=== PATIENT | male | born 1945 | race Caucasian/White ===

== ENCOUNTER 2016-10-13 05:58 | Emergency (ER) | payer MEDICARE ==
[~2016-10-13 05:58] MED LIST: AMIODARONE200 MG PO; ASPIRIN 32325 MG/TAB PO; COREG25 MG PO; ENALAPRIL10 MG PO; IPRATROPIUM BROM3 M1 IH; K-DUR 1010 MEQ PO; KETOROLAC TROME10 MG PO; LASIX40 MG PO; MULTIPLE VITAMI1 TAB PO; SLOW-MAG535 MG PO; VITAMIN D31000 IU PO
[2016-10-13] MEDS ORDERED: PRILOSEC 20MG20 MG PO (06:09)
[2016-10-13] MEDS ORDERED: NORCO 325 MG-51 TA1 PO (06:09)
[2016-10-13] MEDS ORDERED: ZOFRAN4 M2 PO (08:11)
[2016-10-13] MEDS ORDERED: FLEXERIL 1010 MG/TAB PO (08:11)
== END 2016-10-13 08:42 | disposition home or self-care (01) ==
LOC: ED 05:58
DX: M48.06 Spinal stenosis, lumbar region (principal); M54.41 Lumbago with sciatica, right side; M54.10 Radiculopathy, site unspecified; R11.0 Nausea
CPT/HCPCS: J0595

== ENCOUNTER → 2016-11-07 | Outpatient (CLI) | payer MEDICARE ==
[~2016-11-07] MED LIST changes: +FLEXERIL 1010 MG/TAB PO; +NORCO 325 MG-51 TA1 PO; +PRILOSEC 20MG20 MG PO; +ZOFRAN4 M2 PO
== END ==
LOC: RAD 12:03
DX: M25.551 Pain in right hip (principal)

== ENCOUNTER → 2017-03-10 | Outpatient (CLI) | payer MEDICARE ==
[2016-10-13 08:40] VITALS: BP 111/65
== END ==
LOC: LAB 12:07
DX: I43 Cardiomyopathy in diseases classified elsewhere (principal); I25.10 Atherosclerotic heart disease of native coronary artery without angina pectoris; E88.81 Metabolic syndrome and other insulin resistance

== ENCOUNTER → 2017-04-02 | Outpatient (CLI) | payer MEDICARE ==
[2016-10-13 08:40] VITALS: BP 111/65
== END ==
LOC: LAB 11:02
DX: I43 Cardiomyopathy in diseases classified elsewhere (principal); I25.10 Atherosclerotic heart disease of native coronary artery without angina pectoris

== ENCOUNTER → 2017-05-04 | Outpatient (CLI) | payer MEDICARE ==
[2016-10-13 08:40] VITALS: BP 111/65
== END ==
LOC: CARDREHAB 14:06 → PT 14:06
DX: I25.10 Atherosclerotic heart disease of native coronary artery without angina pectoris (principal)
CPT/HCPCS: G0399

== ENCOUNTER → 2017-05-05 | Outpatient (CLI) | payer MEDICARE ==
[2016-10-13 08:40] VITALS: BP 111/65
== END ==
LOC: LAB 05-04 13:49
DX: I25.10 Atherosclerotic heart disease of native coronary artery without angina pectoris (principal)

== ENCOUNTER → 2017-08-31 | Outpatient (CLI) | payer MEDICARE ==
[2016-10-13 08:40] VITALS: BP 111/65
[2017-08-31 12:02] LABS: EOS # 0.1 (0.04-0.40); EOS % 1.5 % (0.0-4.0); HEMATOCRIT 46.4 % (42.0-52.0); HEMOGLOBIN 15.1 g/dL (13.5-18.0); LYMPH# 1.2 (1.50-4.00); MEAN CELL VOLUME 100 fl (78-100); MEAN CORPUSCULAR HEMOGLOBIN 33 pg (27-31); MEAN CORPUSCULAR HGB CONC 33 g/dL (33-37); MEAN PLATELET VOLUME 10.2 fl (7.4-10.4); MONO # 0.8 (0.20-0.80); NEU # 6.3 (1.40-6.50); PLATELET COUNT 242 K/mm3 (130-400); RED BLOOD COUNT 4.65 M/mm3 (4.20-5.60); WHITE BLOOD COUNT 8.5 K/mm3 (4.8-10.8)
[2017-08-31 12:13] LABS: ALBUMIN 3.3 g/dL (3.5-5.0); BUN/CREATININE RATIO 19.7 (6.0-26.0); POTASSIUM 3.9 mmol/L (3.6-5.0); TOTAL BILIRUBIN 0.6 mg/dL (0.2-1.3); TOTAL PROTEIN 6.3 g/dL (6.3-8.2)
[2017-08-31 13:10] LABS: ERYTHROCYTE SEDIMENTATION RATE 25 mm/hr (0-20)
[2017-09-01 00:39] LABS: TESTOSTERONE 370 ng/dL (221-716)
== END ==
LOC: LAB 11:40
PROVIDERS: Internal Medicine
DX: I43 Cardiomyopathy in diseases classified elsewhere (principal); D64.9 Anemia, unspecified; I25.10 Atherosclerotic heart disease of native coronary artery without angina pectoris; R73.02 Impaired glucose tolerance (oral); N52.1 Erectile dysfunction due to diseases classified elsewhere; Z12.5 Encounter for screening for malignant neoplasm of prostate; Z12.11 Encounter for screening for malignant neoplasm of colon

== ENCOUNTER 2017-09-28 23:53 | Emergency (ER) | payer MEDICARE ==
[~2017-09-28] VITALS: Ht 152.4 cm; Wt 104.5 kg
[2017-09-29] MEDS ORDERED: TORSEMIDE20 M1 PO (00:50)
[2017-09-29] MEDS ORDERED: LIPITOR20 M2 PO (00:51)
[2017-09-29] MEDS ORDERED: CLOPIDOGREL PO (00:51)
== END 2017-09-29 15:25 | disposition expired ==
LOC: ED 23:53
DX: I46.9 Cardiac arrest, cause unspecified (principal); I11.0 Hypertensive heart disease with heart failure; I50.9 Heart failure, unspecified; I25.2 Old myocardial infarction; E78.5 Hyperlipidemia, unspecified; Z95.810 Presence of automatic (implantable) cardiac defibrillator; F17.200 Nicotine dependence, unspecified, uncomplicated; Z86.73 Personal history of transient ischemic attack (TIA), and cerebral infarction without residual deficits; I25.10 Atherosclerotic heart disease of native coronary artery without angina pectoris; R60.0 Localized edema; Z79.02 Long term (current) use of antithrombotics/antiplatelets
CPT/HCPCS: J0171